=== PATIENT | male | born 1950 | race American Indian/Alaskan Native ===

== ENCOUNTER 2020-05-13 07:34 | Day surgery (SDC) | payer MEDICARE, OTHER ==
[2020-05-13] MEDS ORDERED: SODIUM CHLORIDE 0.9% 500 ML 500 ML ONE (07:56)
[2020-05-13] MEDS ORDERED: ASPIRIN EC 325 MG TAB PO ONE (08:09)
[2020-05-13 08:26] LABS: Basophils % (Auto) 0.7 % (0.0-1.8); Eosinophils # (Auto) 0.2 K/mm3 (0.0-0.4); Eosinophils % (Auto) 2.5 % (0.0-4.3); Hematocrit 36.8 % (35.5-45.6); Hemoglobin 12.3 gm/dl (11.8-15.2); Lymphocytes # (Auto) 1.9 K/mm3 (1.2-5.4); Lymphocytes % (Auto) 26.5 % (13.4-35.0); Mean Corpuscular HGB Conc 33 % (32-34); Mean Corpuscular Volume 78 fl (84-94); Monocytes # (Auto) 0.5 K/mm3 (0.0-0.8); Monocytes % (Auto) 6.2 % (0.0-7.3); Platelet Count 261 K/mm3 (140-440); Red Blood Count 4.75 M/mm3 (3.65-5.03); Red Cell Distribution Width 15.7 % (13.2-15.2)
[2020-05-13 08:38] LABS: INR 0.96 (0.87-1.13)
[2020-05-13 08:39] LABS: Partial Thromboplastin Time 27.1 Sec. (24.2-36.6)
[2020-05-13 08:40] LABS: BUN/Creatinine Ratio 14; Blood Urea Nitrogen 17 mg/dL (9-20); Calcium 9.1 mg/dL (8.4-10.2); Hemolysis Index 5
[2020-05-13] MEDS ORDERED: SODIUM CHLORIDE 0.9% 500 ML 500 ML IV SCH (09:00)
[2020-05-13] MEDS ORDERED: NITROGLYCERIN SYRINGE 3 ML ONE (09:03)
[2020-05-13] MEDS ORDERED: HEPARIN/NS 5000 UNIT/500ML 1,000 ML IR ONE (09:03)
[2020-05-13] MEDS ORDERED: LIDOCAINE (2%) 20 MG/1 ML VIAL 20 ML MDV INFILTRATI ONE (09:03)
[2020-05-13] MEDS ORDERED: fentaNYL 100 MCG/2 ML INJ ONE (09:03)
[2020-05-13] MEDS ORDERED: VERAPAMIL 5 MG/2 ML INJ ONE (09:03)
[2020-05-13] MEDS ORDERED: MIDAZOLAM 2 MG/2 ML INJ ONE (09:03)
[2020-05-13] MEDS ORDERED: HEPARIN 10,000 UNITS/10 ML VIAL ONE (09:03)
--- NOTE | 2020-05-13 10:18 | Cardiac Catherization Report ---
REFERRING PHYSICIAN: Dr. Bari Downing INDICATION FOR PROCEDURE: The patient is a very pleasant 70-year-old -[place] gentleman with history of hypertension, hyperlipidemia, who had an abnormal stress test and is referred for left heart catheterization. Risks, benefits, alternatives discussed at length prior to obtaining informed consent. PROCEDURE IN DETAIL: The patient was brought to the catheterization lab in a postabsorptive state, prepped and draped in sterile fashion. Joshua's test in right hand was normal. A 2 mL of 2% lidocaine used to anesthetize the right wrist. A standard 6-[place] hydrophilic sheath used to cannulate the right radial artery via modified Seldinger technique. All exchanges performed to exchange a J-tip guidewire. JL3.5 catheter was used to engage the left main. No dampening or ventricularization. Cineangiography performed in all projections. JR4 catheter was used to cross the aortic valve under fluoroscopic guidance. Left ventriculography performed 30 [place] projections via hand injections, catheter flushed. Manual pullback performed with continuous pressure monitoring of his right coronary. No dampening or ventricularization. Cineangiography performed in all projections. Next, catheter removed from the body of wire, sheath removed. Manual pressure used to achieve hemostasis. I directly supervised the administration of moderate sedation from 9:30 a.m. to 9:55 a.m. There were no immediate complications. DATA: Aortic pressure is 170/70, LV pressure is 170. LVP of 20 mmHg. Left ventriculography reveals normal systolic performance with estimated ejection fraction of 55-60%. No evidence of aortic stenosis. CORONARY ANATOMY: This is a right dominant system. Right coronary is a moderate sized vessel, courses AV groove, distally bifurcates into posterior descending and posterolateral branches. No discrete stenosis noted. Scattered luminal irregularities. Left main without significant disease, bifurcates left anterior descending and left circumflex. LAD is a moderate sized vessel, courses anterior intergroove, wraps around the apex, no significant disease. Left circumflex is a moderate sized vessel, courses AV groove. No significant disease. CONCLUSIONS: 1. No angiographic evidence of significant epicardial coronary disease in this right dominant system. 2. Normal left ventricular systolic performance, estimated ejection fraction of 55-60%. 3. Normal LVEDP. 4. No evidence of aortic stenosis. 5. Uncontrolled hypertension. The patient is clinically stable. Blood pressure medications are IV hydralazine was given. The patient states that his blood pressure is adequately controlled at home on home medications. Follow up with Dr. Downing. Watch blood pressure and him closely. Results of procedure explained to the patient and family. All questions and concerns were addressed. Standard radial care. JOB# [id number] SBM/NTS
--- NOTE | 2020-05-13 10:59 | Short Stay Summary ---
Short Stay Documentation Date of service: 05/13/20 - History H&P: obtained from office - Allergies and Medications Current Medications: Allergies lisinopril Adverse Reaction (Verified 05/13/20 08:09) cough Home Medications Medication Instructions Recorded Confirmed Last Taken Type Atorvastatin [Lipitor] 40 mg PO QHS 05/13/20 05/13/20 05/12/20 History 40 mg Telmisartan/Hydrochlorothiazid 1 tab PO DAILY 05/13/20 05/13/20 05/12/20 History [Micardis Hct 80-25 mg Tablet] 1 carvediloL [Coreg] 6.25 mg PO BID 05/13/20 05/13/20 05/12/20 History 6.25mg hydrALAZINE [Apresoline TAB] 100 mg PO BID 05/13/20 05/13/20 05/12/20 History 100 mg Active Medications Sodium Chloride (Nacl 0.9% 500 Ml) 500 mls @ 50 mls/hr IV DIRECT KIT Stop: 05/13/20 18:59 Last Admin: 05/13/20 08:47 Dose: 50 mls/hr Documented by: - Brief post op/procedure progress note Date of procedure: 05/13/20 Pre-op diagnosis: abnormal stress test Post-op diagnosis: other (normal coronaries) Procedure: [facility] - see dictated cath report Anesthesia: local Estimated blood loss: none Condition: stable - Disposition Condition at discharge: Good Disposition: [id number] TO HOME OR SELFCARE - Discharge Diagnoses (1) Normal coronary angiogram Status: Chronic (2) HTN (hypertension) Status: Chronic (3) Hyperlipidemia Status: Chronic Short Stay Discharge Plan Activity: advance as tolerated Diet: low fat, low cholesterol, low salt Wound: open to air, keep clean and dry, per your surgeon's advice Follow up with: BEBA HART NP-C [Primary Care Provider] - 7 Days ANGELITO CHILDS MD [Staff Physician] - 7 Days
[2020-05-13 13:13] VITALS: BP 174/83
== END 2020-05-13 13:45 | disposition home or self-care (01) ==
LOC: CATHLABREC 07:34
PROVIDERS: ATTEND Internal Medicine
DX: R94.39 Abnormal result of other cardiovascular function study (principal); I10 Essential (primary) hypertension; E78.49 Other hyperlipidemia; Z88.8 Allergy status to other drugs, medicaments and biological substances; Z79.899 Other long term (current) drug therapy; Z98.890 Other specified postprocedural states
CPT/HCPCS: 36415; 80048; 85025; 85610; 85730; 93005; 93458; 99156; 99157; C1894; J1644; J2250; J3010; J7040; Q9967